=== PATIENT | male | born 1960 | race Caucasian/White ===

== ENCOUNTER → 2017-06-30 | Outpatient (CLI) | payer OTHER ==
[~2017-06-30] VITALS: Ht 182.9 cm; Wt 113.8 kg
[~2017-06-30] MED LIST: ADVAIR 500/501 DISK IH; CARDIZEM CD120 M1 PO; CATAPRES0.1 MG PO; CELEBREX200 MG PO; COMBIVENT RESPIM4 GM IH; FLUOXETINE HCL60 MG PO; HYDROCODON-ACE1 EAC7 PO; LOTENSIN40 MG PO; PROVENTIL,2.5 MG/3 M IH; PROZAC10 MG PO; SEROQUEL50 MG PO; ZYRTEC10 M2 PO; [UNRECOGNIZED DRUG - REMARK]
[2017-06-30 09:58] LABS: ANION GAP 13 MEQ/L (2-14); CHLORIDE 101 MEQ/L (99-109); POTASSIUM 4.6 MEQ/L (3.7-5.4); SAMPLE HEMOLYSIS CHECK 0; SAMPLE ICTERIC CHECK 0; SAMPLE LIPEMIA CHECK 0; SODIUM 137 MEQ/L (136-147)
[2017-06-30 10:04] LABS: GFR ESTIMATE (CALCULATED) > 59 mL/min/; GLUCOSE 112 mg/dL (70-99); SERUM ETHYL ALCOHOL < 10 mg/dL; UREA NITROGEN (BUN) 9 mg/dL (9-23)
== END | disposition home or self-care (01) ==
LOC: AMB 09:03
PROVIDERS: Internal Medicine
PROC: 0DBK8ZX Excision of Ascending Colon, Via Natural or Artificial Opening Endoscopic, Diagnostic (ICD-10-PCS; principal; 2017-06-30)
DX: Z12.11 Encounter for screening for malignant neoplasm of colon (principal); D12.2 Benign neoplasm of ascending colon; K62.1 Rectal polyp; K57.30 Diverticulosis of large intestine without perforation or abscess without bleeding; Z86.010 Personal history of colon polyps; Z80.0 Family history of malignant neoplasm of digestive organs; F17.200 Nicotine dependence, unspecified, uncomplicated; E78.5 Hyperlipidemia, unspecified; I10 Essential (primary) hypertension; J43.9 Emphysema, unspecified; F41.8 Other specified anxiety disorders
CPT/HCPCS: 80048; 88305; 93005; G0480; J2250

== ENCOUNTER 2018-01-09 16:18 | Emergency (ER) | payer OTHER ==
[~2018-01-09] VITALS: Ht 180.3 cm; Wt 143.0 kg
[2018-01-09 17:44] LABS: HEMATOCRIT 49.5 % (38.0-50.0); HEMOGLOBIN 17.2 G/DL (12.5-16.6); MCH 32.5 PG (29.0-34.0); MCHC 34.7 G/DL (30.0-36.0); MCV 93.4 FL (86-99); PLATELET COUNT 248 K/uL (156-360); RBC DIS.WIDTH-CV 12.9 % (11.8-14.6); RBC DIS.WIDTH-SD 44.2 % (39-53); WHITE BLOOD COUNT 10.1 K/uL (4.1-10.2)
[2018-01-09 18:05] LABS: TROP-I INTERPRETATION NEGATIVE; TROPONIN-I < 0.01 ng/mL (0.0-0.30)
[2018-01-09 18:15] LABS: CHLORIDE 100 mEq/L (99-109); CREATININE 0.8 mg/dL (0.6-1.3); GFR ESTIMATE (CALCULATED) > 59 mL/min/ (58.99-99999); GLUCOSE 96 mg/dL (70-99); POTASSIUM 4.5 mEq/L (3.7-5.4); SODIUM 136 mEq/L (136-147); UREA NITROGEN (BUN) 10 mg/dL (9-23)
[2018-01-09 20:23] LABS: ALBUMIN 4.3 g/dL (3.2-4.8)
[2018-01-09 20:24] LABS: AMYLASE 51 IU/L (1-118)
[2018-01-09 20:26] LABS: TOTAL PROTEIN 7.8 g/dL (6.4-8.3)
[2018-01-09 20:28] LABS: TOTAL BILIRUBIN 0.7 mg/dL (0.0-1.0)
[2018-01-09 20:29] LABS: ALKALINE PHOSPHATASE 86 IU/L (3-129)
[2018-01-09 20:32] LABS: ALT (GPT) 43 IU/L (3-49); AST (GOT) 34 IU/L (2-34); DIRECT BILIRUBIN 0.3 mg/dL (0.0-0.3)
[2018-01-09 20:33] LABS: LIPASE 28 U/L (1.0-51.0)
[2018-01-09] MEDS ORDERED: PRILOSEC20 MG PO (21:35)
[2018-01-09 22:04] VITALS: BP 146/89
== END 2018-01-09 22:04 | disposition home or self-care (01) ==
LOC: EME 16:18
DX: R10.13 Epigastric pain (principal); F10.10 Alcohol abuse, uncomplicated; E27.9 Disorder of adrenal gland, unspecified; I45.4 Nonspecific intraventricular block; I10 Essential (primary) hypertension; K21.9 Gastro-esophageal reflux disease without esophagitis; E78.5 Hyperlipidemia, unspecified; F41.9 Anxiety disorder, unspecified; F32.9 Major depressive disorder, single episode, unspecified; F17.200 Nicotine dependence, unspecified, uncomplicated; Z79.51 Long term (current) use of inhaled steroids; Z79.891 Long term (current) use of opiate analgesic; Z85.51 Personal history of malignant neoplasm of bladder
CPT/HCPCS: 71046; 74176; 80048; 80076; 82150; 83690; 84484; 85027; 93005; 99281; 99284